=== PATIENT | female | born 1990 | race American Indian/Alaskan Native ===

== ENCOUNTER 2020-11-20 23:04 | Inpatient (IN) | payer MEDICAID ==
[2020-11-20] MEDS ORDERED: OXYTOCIN DRIP 30 UNITS/500 ML BAG IV SCH (23:45)
[2020-11-20] MEDS ORDERED: MINERAL OIL 30 ML ORAL LIQD PO PRN (23:56)
[2020-11-20] MEDS ORDERED: LIDOCAINE (2%) 20 MG/1 ML VIAL 20 ML MDV INFILTRATI ONE (23:56)
[2020-11-20] MEDS ORDERED: ePHEDrine SULFATE 50 MG/1 ML INJ IV PRN (23:56)
[2020-11-20] MEDS ORDERED: TERBUTALINE 1 MG/1 ML INJ SUB-Q PRN (23:56)
[2020-11-21] MEDS ORDERED: AMPICILLIN/NS 2 GM/100 ML 2 GM/100 ML BAG IV ONE ×2 (00:46)
[2020-11-21 00:56] LABS: Hematocrit 29.4 % (30.3-42.9); Hemoglobin 9.3 gm/dl (10.1-14.3); Mean Corpuscular HGB Conc 32 % (30-34); Platelet Count 157 K/mm3 (140-440); Red Blood Count 4.32 M/mm3 (3.65-5.03); Red Cell Distribution Width 19.7 % (13.2-15.2)
[2020-11-21 01:05] LABS: Mean Corpuscular Volume 68 fl (79-97)
[2020-11-21 01:11] LABS: Amphetamine Screen,Urine Negative; Benzodiazepines Screen,Urine Negative; Cocaine Screen,Urine Negative; Methadone Screen,Urine Negative; Opiate Screen,Urine Negative
[2020-11-21 01:25] LABS: Cannabinoid Screen,Urine Positive
[2020-11-21] MEDS ORDERED: fentaNYL 100 MCG/2 ML INJ IV PRN (02:18)
[2020-11-21] MEDS: AMPICILLIN/NS 1 GM/50 ML 1 GM/50 ML BAG IV SCH ×4 (05:26→21:35)
[2020-11-21] MEDS ORDERED: BUTORPHANOL 2 MG/1 ML INJ IV PRN (09:42)
--- NOTE | 2020-11-21 09:51 | History and Physical Report ---
History of Present Illness Date of examination: 11/21/20 Date of admission: 11/21/20 07:35 Chief complaint: "c/o uc times several hours" History of present illness: 30 y/o [facility] 40.2 wks with c/o uc times several hours. Pt denies LOF or VB and admits to active FM. Pt states she initiated her pnc at [facility] location @ about 19 wks. Pt admits to a hx of asthma since childhood, HSV2, depression w/o meds, and anemia. She denies a surgical hx. She is a smoker. Pt has a family hx of DM, ca, and HTN. Pt was found to be in active labor and was admitted to L&D for delivery. Past History Past Medical History: asthma, other (depression,anemia) Past Surgical History: no surgical history EVENT SPECIALIST History: herpes Family/Genetic History: diabetes, hypertension, cancer Social history: single, smoking, full code - Obstetrical History Expected Date of Delivery: 11/18/20 Actual Gestation: 40 Week(s) 3 Day(s) : 7 Para: 4 Hx # Term Pregnancies: 4 Number of Pregnancies: 4 Spontaneous Abortions: 1 Induced : 1 Number of Living Children: 4 Medications and Allergies Allergies Allergy/AdvReac Type Severity Reaction Status Date / Time No Known Allergies Allergy Verified 11/21/20 00:03 Active Meds: Active Medications Butorphanol Tartrate (Butorphanol 2 Mg/1 Ml Inj) 1 mg IV Q2H PRN PRN Reason: Pain, Moderate(4-6) LABOR PAIN Butorphanol Tartrate (Butorphanol 2 Mg/1 Ml Inj) 2 mg IV Q2H PRN PRN Reason: Pain , Severe (7-10) Ephedrine Sulfate (Ephedrine Sulfate 50 Mg/1 Ml Inj) 10 mg IV Q2M PRN PRN Reason: Hypotension Fentanyl (Fentanyl 100 Mcg/2 Ml Inj) 100 mcg IV Q2HR PRN PRN Reason: Labor Pain Lactated Ringer's (Lactated Ringers) 1,000 mls @ 125 mls/hr IV DIRECT DIOR Oxytocin/Sodium Chloride (Pitocin/Ns 30 Unit/500ml) 30 units in 500 mls @ 40 m ls/hr IV TITR DIOR; Protocol Ampicillin Sodium (Ampicillin/Ns 1 Gm/50 Ml) 1 gm in 50 mls @ 100 mls/hr IV Q4H DIOR; Protocol Last Admin: 11/21/20 05:26 Dose: 100 mls/hr Documented by: Oxytocin/Sodium Chloride (Pitocin/Ns 30 Unit/500ml) 30 units in 500 mls @ 2 mls/hr IV TITR DIOR; Protocol Oxytocin/Sodium Chloride (Pitocin/Ns 30 Unit/500ml) 30 units in 500 mls @ 40 mls/hr IV TITR DIOR; Protocol Mineral Oil (Mineral Oil 30 Ml Oral Liqd) 30 ml PO QHS PRN PRN Reason: Constipation Terbutaline Sulfate (Terbutaline 1 Mg/1 Ml Inj) 0.25 mg SUB-Q ONCE PRN PRN Reason: Hyperstimulation/Hypertonicity Review of Systems All systems: negative Eyes: deferred Ears, nose, mouth and throat: deferred Breasts: normal Genitourinary: normal appearance Rectal Exam: deferred - Vital Signs Vital signs: Vital Signs Temp Resp 97.8 F 16 11/20/20 23:30 11/20/20 23:30 Temp Pulse Resp BP Pulse Ox 98.0 F 87 18 106/58 99 11/21/20 07:36 11/21/20 09:44 11/21/20 02:57 11/21/20 02:48 11/21/20 09:44 - Physical Exam Breasts: Positive: normal Abdomen: Positive: normal appearance, soft, normal bowel sounds, other (gravid) Genitourinary (Female): Positive: normal external genitalia, normal perenium Vulva: both: normal Vagina: Positive: normal moisture Uterus: Positive: enlarged, normal contour, other (gravid) Adnexa: both: normal Anus/Rectum: Positive: normal perianal skin Extremities: Positive: normal - Obstetrical FHR: auscultation normal, category 1 Uterine Contraction Monitor Mode: External Cervical Dilatation: 5 (per nurse) Cervical Effacement Percentage: 60 (per nurse) station: -3 Uterine Contraction Pattern: Irregular Uterine Tone Measurement Phase: Resting Uterine Contraction Intensity: Mild Results Result Diagrams: 11/21/20 00:30 Abnormal lab results 11/21/20 Range/Units 00:30 Hgb 9.3 L (10.1-14.3) gm/dl Hct 29.4 L (30.3-42.9) % MCV 68 L (79-97) fl MCH 21 L (28-32) pg RDW 19.7 H (13.2-15.2) % All other labs normal. 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
[2020-11-21] MEDS ORDERED: OXYTOCIN DRIP 30 UNITS/500 ML BAG IV SCH ×2 (11:00)
[2020-11-21] MEDS: LACTATED RINGERS 1,000 ML IV SCH (12:10)
[2020-11-21] MEDS: BUTORPHANOL 2 MG/1 ML INJ IV PRN ×2 (14:22→17:08)
[2020-11-21] MEDS ORDERED: fentaNYL-BUPIV 2 MCG/ML-0.125% 200 MCG/100 ML BAG EPIDURAL ONE (16:27)
[2020-11-21] MEDS ORDERED: ePHEDrine SULFATE 50 MG/1 ML INJ IV PRN (18:16)
[2020-11-21] MEDS ORDERED: NALOXONE 2 MG/2 ML INJ IV PRN (18:16)
--- NOTE | 2020-11-21 18:18 | Anesthesia Consultation ---
Anesthesia Consult and Med Hx Date of service: 11/21/20 - Airway Anesthetic Teeth Evaluation: Good ROM Head & Neck: Adequate Mental/Hyoid Distance: Adequate Mallampati Class: Class II Intubation Access Assessment: Probably Good - Pulmonary Exam CTA: Yes - Cardiac Exam Cardiac Exam: RRR - Pre-Operative Health Status ASA Pre-Surgery Classification: ASA3 Proposed Anesthetic Plan: Epidural - Pulmonary Hx Smoking: Yes Hx Asthma: Yes COPD: No Hx Pneumonia: No - Cardiovascular System Hx Hypertension: No - Central Nervous System Hx Seizures: No Hx Psychiatric Problems: No - Endocrine Hx Renal Disease: No Hx End Stage Renal Disease: No Hx Hypothyroidism: No Hx Hyperthyroidism: No - Hematic Hx Anemia: Yes Hx Sickle Cell Disease: No - Other Systems Hx Alcohol Use: No Hx Substance Use: Yes (marijuana)
--- NOTE | 2020-11-21 18:39 | Progress Note ---
Labor Epidural - Labor Epidural Start Time: 18:21 Stop Time: 18:38 Performed by:: JOHANN AVALOS Procedure: Patient is requesting epidural for labor pain. H&P, and labs reviewed. Procedure explained, questions answered, consent obtained. Patient in sitting position with blood pressure cuff and pulse ox on and working. Timeout performed immediately before start of procedure. Sterile chlorahexadine 0.5% prep/drape. 3 mL 1% lidocaine skin wheal at L[3]-L[4]. 18-gauge [employer] epidural needle advanced to [id number] with saline at [7] cm. Epidural catheter advanced to [12] cm, negative aspiration for blood and csf, negative test dose 3 ml 1.5% lidocaine with epinephrine. Epidural dexmedetomidine [30] mcg administered. Sterile steri-strips and tegaderm applied, followed by tape reinforcement. Patient tolerated procedure well. Medina HOLCOMB
[2020-11-21] MEDS: fentaNYL-BUPIV 2 MCG/ML-0.125% 200 MCG/100 ML BAG EPIDURAL SCH (19:03)
[2020-11-22] MEDS: AMPICILLIN/NS 1 GM/50 ML 1 GM/50 ML BAG IV SCH ×3 (01:10→04:21)
[2020-11-22] MEDS ORDERED: ONDANSETRON 4 MG/2 ML INJ ONE (01:48)
[2020-11-22] MEDS ORDERED: ONDANSETRON 4 MG/2 ML INJ IV ONE (01:50)
[2020-11-22] MEDS: LACTATED RINGERS 1,000 ML IV SCH (01:50)
[2020-11-22] MEDS: fentaNYL-BUPIV 2 MCG/ML-0.125% 200 MCG/100 ML BAG EPIDURAL SCH (04:22)
[2020-11-22] MEDS ORDERED: miSOPROStol 200 MCG TAB ONE (08:13)
[2020-11-22] MEDS ORDERED: miSOPROStol 200 MCG TAB PR ONE (08:15)
[2020-11-22] MEDS ORDERED: diphenhydrAMINE 25 MG CAP PO PRN (09:00)
[2020-11-22] MEDS ORDERED: PROMETHAZINE 25 MG RECT SUPP PR PRN (09:00)
[2020-11-22] MEDS ORDERED: PROMETHAZINE 25 MG TAB PO PRN (09:00)
[2020-11-22] MEDS ORDERED: LANOLIN/ZINC/DIMETHICONE (LANSINOH) 7 GM TP PRN (09:00)
[2020-11-22] MEDS ORDERED: ONDANSETRON 4 MG/2 ML INJ IV PRN (09:00)
[2020-11-22] MEDS ORDERED: WITCH HAZEL/ GLYCERIN PAD TP PRN (09:00)
--- NOTE | 2020-11-22 09:10 | Procedure Note ---
OB Delivery Note - Delivery Date of Delivery: 11/22/20 Surgeon: STEFAN BLOOM - Vaginal Delivery presentation: vertex Delivery position: OA Delivery induction: none Delivery augmentation: pitocin Delivery monitor: external FHT, external uterine Route of delivery: Delivery placenta: spontaneous Delivery cord: 3 umbilical vessels Episiotomy: none Delivery laceration: none Anesthesia: intravenous, epidural Delivery comments: Called to for a del. SVE 10/100/+1 and pt was pushing. of a viable live female infant in OA position. Spont delivery of head and shoulders. Infant was placed on mom's chest/abd for skin to skin bonding while NICU nurse dried and stimulated baby. Delayed cord clamping x approx 90 sec then cord was clamped x 2 and FOB was allowed to cut the cord. Baby was taken to infant warmer for an asses by NICU nurse. 9/9. Spontaneous delivery of an intact placenta with 3CV. Fundus boggy intermittently @U with occ trickle of blood noted. Urinary cath done. Homeostasis was maintained with fundal massage, IV Pitocin and Cytotec 800 mcg DC. An exploration of tears revealed none. QBL 654 per nurse. FW 3065 Gms. Mom and baby was left in stable condition with nurses. - Infant A at 1 minute: 9 at 5 minutes: 9 Infant Gender: Female (FW 3065 Gms)
[2020-11-22] MEDS: IBUPROFEN 600 MG TAB PO SCH ×3 (10:18→23:36)
[2020-11-22 15:33] LABS: Basophils % (Auto) 0.1 % (0.0-1.8); Hematocrit 35.7 % (30.3-42.9); Hemoglobin 11.1 gm/dl (10.1-14.3); Lymphocytes # (Auto) 0.8 K/mm3 (1.2-5.4); Lymphocytes % (Auto) 4.7 % (13.4-35.0); Mean Corpuscular HGB Conc 31 % (30-34); Mean Corpuscular Volume 68 fl (79-97); Monocytes # (Auto) 0.9 K/mm3 (0.0-0.8); Monocytes % (Auto) 5.5 % (0.0-7.3); Platelet Count 175 K/mm3 (140-440); Red Blood Count 5.24 M/mm3 (3.65-5.03); Red Cell Distribution Width 19.6 % (13.2-15.2)
[2020-11-22] MEDS: FAMOTIDINE 20 MG TAB PO SCH (16:37)
[2020-11-22 21:20] LABS: Hematocrit 33.5 % (30.3-42.9); Hemoglobin 10.7 gm/dl (10.1-14.3)
[2020-11-22] MEDS ORDERED: MAGNESIUM HYDROXIDE (MOM) ORAL LIQD UDC PO PRN (22:00)
[2020-11-22] MEDS: FERROUS SULFATE 325 MG TAB PO SCH (23:37)
[2020-11-23] MEDS ORDERED: TETANUS,DIPH,PERTUSS(ACELL) VACCINE 0.5 ML SYRINGE IM ONE (06:00)
[2020-11-23] MEDS: FERROUS SULFATE 325 MG TAB PO SCH ×2 (09:30→22:31)
[2020-11-23] MEDS: FAMOTIDINE 20 MG TAB PO SCH (09:30)
[2020-11-23] MEDS: IBUPROFEN 600 MG TAB PO SCH ×3 (09:30→22:32)
--- NOTE | 2020-11-23 11:54 | Progress Note ---
Assessment and Plan - Patient Problems (1) Vaginal delivery Current Visit: Yes Status: Acute Plan to address problem: Patient doing well. Meeting goals. --Dispo pending evaluation and management of depression/poor social support (2) Depression Current Visit: Yes Status: Acute Plan to address problem: --Psych consulted given [place] scale result --SW consulted for resources --Dispo pending completion of assessment Subjective - Subjective Date of service: 11/23/20 Principal diagnosis: PPD1, hx depression Interval history: Patient somewhat upset up unsupportive FOB given 4 other children needing summer school with new baby. Only one car. Denies SI/HI, but feels overwhelmed. [place] 14. Breast/bottle feeding. Would like resources for support Patient reports: appetite normal, voiding normally, pain well controlled [place]: doing well Objective - Vital Signs Latest vital signs: Vital Signs Temp Pulse Resp BP Pulse Ox 11/23/20 07:14 98.1 F 69 20 111/70 100 11/22/20 23:36 12 11/22/20 21:15 97.6 F 75 18 114/69 100 11/22/20 16:10 98.2 F 86 24 112/75 100 Intake and Output 11/22/20 11/23/20 11/23/20 23:59 07:59 15:59 Intake Total 480 240 Balance 480 240 Intake: Oral 480 240 Other: Total, Intake Amount 480 240 # Voids Void 1 - Exam Abdomen: Present: normal appearance, normal bowel sounds Uterus: Present: fundal height below umbilicus - Labs Labs: Abnormal lab results 11/22/20 Range/Units 15:12 WBC 16.7 H (4.5-11.0) K/mm3 RBC 5.24 H (3.65-5.03) M/mm3 MCV 68 L (79-97) fl MCH 21 L (28-32) pg RDW 19.6 H (13.2-15.2) % Lymph % (Auto) 4.7 L (13.4-35.0) % Lymph # (Auto) 0.8 L (1.2-5.4) K/mm3 [place] # (Auto) 0.9 H (0.0-0.8) K/mm3 Seg Neutrophils % 89.7 H (40.0-70.0) % Seg Neutrophils # 15.0 H (1.8-7.7) K/mm3
--- NOTE | 2020-11-23 18:51 | Post Anesthesia Evaluation ---
- Post Anesthesia Evaluation Patient Participated: Yes Airway Patent: Yes Stable Respiratory Function: Yes Nausea/Vomiting: No Temp > 96.8F: Yes Pain Manageable: Yes Adequeate Hydration: Yes Anesthesia Complications: No Block Receding Appropriately: Yes
[2020-11-24] MEDS: IBUPROFEN 600 MG TAB PO SCH ×2 (04:40→12:35)
--- NOTE | 2020-11-24 07:04 | Consultation ---
History of Present Illness - Reason for Consult Consult date: 11/24/20 Reason for consult: MHE Requesting physician: ANDRA PARRISH JR - Chief Complaint Chief complaint: "c/o uc times several hours" - History of Present Psychiatric Illness Per ED Provider: PSYCH HPI Patient is a 30-year-old single, currently unemployed -Serbian female with past psychiatric history of depression and has past medical history of asthma and anemia who was admitted to the hospital for child delivery with subsequent psychiatric consult for elevated depression scoring scale. Patient reported that she has prior history of depression but has never been put on medication for it. Patient reports feeling better with an improved mood today, endorses feeling depressed yesterday on and off when she started thinking about what life would be after leaving the hospital with a baby. Patient reported that she also has 4 other kids at home, and trying to adjust to the new lifestyle of a baby and caring for 5 kids now made her feel worried reports she has prayed to God about it and is keeping an optimistic mindset. Patient endorses that she gets support from the kids baby daddy's and also grandma. Denies any suicidal thoughts or homicidal ideations at this moment Patient denies panic attacks, recurrent nightmares or flashbacks. Patient denies symptoms suggestive of OCD or PTSD. Patient denies hallucinations, paranoia, thought interference and no features suggestive of hypomania or jade. Patiently completely denies suicidal or homicidal thoughts. PAST PSYCHIATRIC HISTORY Diagnoses: Depression Suicide attempts or Self-harm behavior: None reported Prior psychiatric hospitalizations: None reported Substance Abuse history: Marijuana Previous psychiatric medications tried: None reported Outpatient treatment: PAST MEDICAL HISTORY: Asthma and anemia Family Psychiatric History: None reported or documented SOCIAL HISTORY Marital Status: Single Living Arrangements: With family Employment Status: Employed Access to guns/weapons: None reported Education: Some college History of Abuse: None report Legal History: None reported REVIEW OF SYSTEMS Constitutional: Negative for weight loss ENT: Negative for stridor Respiratory: Negative for cough or hemoptysis All other systems reviewed and are negative MENTAL STATUS EXAMINATION General Appearance and Behavior: Age appropriate, good hygiene, wearing appropriate clothes, good eye contact, cooperative polite with questioning. Cooperation: Participating/engaged Psychomotor Behavior: unremarkable and within normal limits Mood: Good Affect and affective range: congruent with mood Thought Process: Fluent/Logical, Thought Content: Within reality, Speech: Normal volume, Regular rate and rhythm, Intellectual Functioning: Average Suicidal Ideation: Denies SI Homicidal Ideation: Denies HI Impulse Control: Unimpaired Insight and Judgment: Normal insight and judgment, Memory: Normal, Attention: Normal, Orientation: Alert, oriented, Assessment and Plan - Psychiatric problem (1) Depression Current Visit: Yes Status: Acute Treatment Plan Outpatient counseling services MEDICATIONS: Risks, benefits and alternatives of medications discussed with the patient, questions answered and consent obtained from patient. PSYCHOTHERAPY: Supportive psychotherapy provided MEDICAL: Per primary team DELIRIUM PRECAUTIONS: Please re-orient patient frequently, keep lights on during the day, and minimize benzodiazepines and opiates as these medications could worsen patient's confusion. FLOOR COVERING INSTALLER: DISPOSITION: Do Not Recommend acute inpatient psychiatric hospitalization at this time. Case discussed with Dr. Dunn who agrees with current disposition LEGAL STATUS: voluntary FOLLOW-UP: Will sign off Thank you for the consult. Please contact with any questions and/or concerns. Medications and Allergies Allergies Allergy/AdvReac Type Severity Reaction Status Date / Time No Known Allergies Allergy Verified 11/21/20 00:03 Home Medications Medication Instructions Recorded Confirmed Last Taken Type No Known Home Medications [No 11/21/20 11/21/20 Unknown History Reported Home Medications] Active Meds: Active Medications Bisacodyl (Bisacodyl 10 Mg Rect Supp) 10 mg TX BID PRN PRN Reason: Constipation Butorphanol Tartrate (Butorphanol 2 Mg/1 Ml Inj) 1 mg IV Q2H PRN PRN Reason: Pain, Moderate(4-6) LABOR PAIN Butorphanol Tartrate (Butorphanol 2 Mg/1 Ml Inj) 2 mg IV Q2H PRN PRN Reason: Pain , Severe (7-10) Last Admin: 11/21/20 17:08 Dose: 2 mg Documented by: Diphenhydramine HCl (Diphenhydramine 25 Mg Cap) 25 mg PO Q6H PRN PRN Reason: Itching Ephedrine Sulfate (Ephedrine Sulfate 50 Mg/1 Ml Inj) 10 mg IV Q2M PRN PRN Reason: Hypotension Famotidine (Famotidine 20 Mg Tab) 20 mg PO QDAY DIOR Last Admin: 11/23/20 09:30 Dose: 20 mg Documented by: Fentanyl (Fentanyl 100 Mcg/2 Ml Inj) 100 mcg IV Q2HR PRN PRN Reason: Labor Pain Ferrous Sulfate (Ferrous Sulfate 325 Mg Tab) 325 mg PO BID DIOR Last Admin: 11/23/20 22:31 Dose: 325 mg Documented by: Lactated Ringer's (Lactated Ringers) 1,000 mls @ 125 mls/hr IV DIRECT DIOR Last Admin: 11/22/20 01:50 Dose: 125 mls/hr Documented by: Oxytocin/Sodium Chloride (Pitocin/Ns 30 Unit/500ml) 30 units in 500 mls @ 40 mls/hr IV TITR DIOR; Protocol Last Admin: 11/22/20 07:28 Dose: 165 mls/hr, 165 mls/hr Documented by: Ampicillin Sodium (Ampicillin/Ns 1 Gm/50 Ml) 1 gm in 50 mls @ 100 mls/hr IV Q4H DIOR; Protocol Last Admin: 11/22/20 04:21 Dose: 100 mls/hr Documented by: Oxytocin/Sodium Chloride (Pitocin/Ns 30 Unit/500ml) 30 units in 500 mls @ 2 mls/hr IV TITR DIOR; Protocol Last Titration: 11/21/20 19:12 Dose: 2 mls/hr, 2 mls/hr Documented by: Oxytocin/Sodium Chloride (Pitocin/Ns 30 Unit/500ml) 30 units in 500 mls @ 40 mls/hr IV TITR DIOR; Protocol Fentanyl/Bupivacaine/Sodium Chlor (Fentanyl-Bupiv 2 Mcg/Ml-0.125%) 200 mcg in 100 mls @ 12 mls/hr EPIDURAL TITR DIOR; Protocol Last Admin: 11/22/20 04:22 Dose: 12 mls/hr Documented by: Ibuprofen (Ibuprofen 600 Mg Tab) 600 mg PO Q6H DIOR Last Admin: 11/24/20 04:40 Dose: Not Given Documented by: Magnesium Hydroxide (Magnesium Hydroxide (Mom) Oral Liqd Udc) 30 ml PO HS PRN PRN Reason: Constipation Mineral Oil (Mineral Oil 30 Ml Oral Liqd) 30 ml PO QHS PRN PRN Reason: Constipation Multi-Ingredient Ointment (Lanolin/Zinc/Dimethicone (Lansinoh) 7 Gm) 1 applic TP PRN PRN PRN Reason: Sore Nipples Naloxone HCl (Naloxone 2 Mg/2 Ml Inj) 0.2 mg IV Q5M PRN PRN Reason: Respiratory sedation Ondansetron HCl (Ondansetron 4 Mg/2 Ml Inj) 4 mg IV Q8H PRN PRN Reason: Nausea And Vomiting Promethazine HCl (Promethazine 25 Mg Rect Supp) 25 mg [place] Q6H PRN PRN Reason: Nausea And Vomiting Promethazine HCl (Promethazine 25 Mg Tab) 25 mg PO Q6H PRN PRN Reason: Nausea And Vomiting Sodium Chloride (Sodium Chloride 0.9% 10 Ml Flush Syringe) 10 ml IV PRN NR Stop: 12/03/20 08:59 Terbutaline Sulfate (Terbutaline 1 Mg/1 Ml Inj) 0.25 mg SUB-Q ONCE PRN PRN Reason: Hyperstimulation/Hypertonicity Witch Janel/Glycerin (Witch Janel/ Glycerin Pad) 1 each TP PRN PRN PRN Reason: Hemorrhoid/cleansing/soothing Mental Status Exam - Vital signs Last Vital Signs Temp 98.5 F 11/24/20 00:29 Pulse 65 11/24/20 00:29 Resp 20 11/24/20 00:29 BP 132/75 11/24/20 00:29 Pulse Ox 99 11/24/20 00:29 Results Result Diagrams: 11/22/20 20:49 All other labs normal. Assessment and Plan - Psychiatric problem (1) Depression Current Visit: Yes Status: Acute
[2020-11-24] MEDS: FAMOTIDINE 20 MG TAB PO SCH (10:32)
[2020-11-24] MEDS: FERROUS SULFATE 325 MG TAB PO SCH (10:32)
--- NOTE | 2020-11-24 15:23 | Progress Note ---
Assessment and Plan A: day 2 S/P . Anemia. P: Discharge patient home today. Discussed with patient discharge instructions and warning signs. Advised patient to continue taking her vitamin and iron supplements at home. Advised patient to avoid IC, lifting. Advised patient to follow up at [facility] office tomorrow 11/25/20 for repeat CBC. Patient refused repeat CBC here at hospital and insisted she be discharged home. Patient voiced understanding of all instructions. Subjective - Subjective Date of service: 11/24/20 Principal diagnosis: PPD2, hx depression Interval history: Seen and cleared by psych and social services coordinator. Taking iron supplements for anemia. Patient refuses repeat CBC (leukocytosis on day of delivery). Patient denies urinary frequency, dysuria, back pain, flank pain, cough, fever or chills, malaise, leg pain, foul smelling discharge or any other problems. Patient agrees to return to [facility] office tomorrow 11/25/20 for repeat CBC. Patient insists she has to go home today since she has 4 other children at home to get home to and grandmother is watching the kids right now. Patient reports: appetite normal, voiding normally, pain well controlled, flatus, ambulating normally, no dizzy ambulation, no nauseated : doing well Objective - Vital Signs Latest vital signs: Vital Signs Temp Pulse Resp BP Pulse Ox 11/24/20 08:37 98.7 F 81 18 123/76 100 11/24/20 00:29 98.5 F 65 20 132/75 99 11/23/20 16:18 98.0 F 68 18 128/78 100 Intake and Output 11/23/20 11/24/20 11/24/20 23:59 07:59 15:59 Intake Total 840 240 240 Balance 840 240 240 Intake: Oral 360 240 240 Intake, Free Water 480 Other: Total, Intake Amount 360 240 240 Voiding Method Toilet # Voids Void 1 1 1 - Exam Cardiovascular: Present: Regular rate Lungs: Present: Clear to auscultation Abdomen: Present: normal appearance, soft, normal bowel sounds. Absent: distention, tenderness, guarding, rigidity Uterus: Present: normal, firm, fundal height below umbilicus. Absent: bogginess, tenderness Extremities: Present: normal. Absent: tenderness, edema
--- NOTE | 2020-11-24 15:27 | Discharge Summary ---
Providers - Providers Date of Admission: 11/21/20 07:35 Date of discharge: 11/24/20 Attending physician: BEAU LOPEZ MD 11/21/20 12:32 Consult to Mental Health [CONS] Routine Reason For Exam: hx of depression/ pp depression (no meds) 11/22/20 10:58 Consult to Case Management [CONS] Routine Services Needed at Discharge: Sliver Chopper Notified:: Yes Additional Physician Instructions: Positive drug screen (marijuana) 11/23/20 09:59 psychiatry consult [Consult to Mental Health] [CONS] Routine Reason For Exam: hx of depression/pp depression (no meds) Primary care physician: BEAU LOPEZ MD Hospitalization Reason for admission: active labor Delivery: Episiotomy: none Laceration: none Other procedures: none complications: none Discharge diagnosis: IUP at term delivered [place] baby: female Pertinent studies: Labs Hospital course: Stable hospital course Condition at discharge: Good Disposition: DC-01 TO HOME OR SELFCARE - Discharge Diagnoses (1) Term delivered Status: Acute (2) Anemia Status: Acute Plan - Provider Discharge Summary Activity: routine, no sex for 6 weeks, no heavy lifting 4 weeks, no strenuous exercise Diet: routine Instructions: routine Additional instructions: Continue taking your vitamins and iron supplements at home. Follow up at [facility] office tomorrow 11/25/20. Call your doctor immediately for: * Fever > 100.5 * Heavy vaginal bleeding ( >1 pad per hour) * Severe persistent headache * Shortness of breath * Reddened, hot, painful area to leg or breast - Follow up plan Follow up: BEAU LOPEZ MD [Primary Care Provider] - 11/25/20 Forms: [facility] Discharge Summary
[2020-11-24 16:32] VITALS: BP 128/74
== END 2020-11-24 16:20 | disposition home or self-care (01) | DRG 774 ==
LOC: TRG 23:04 → APU 23:51 → LD 11-21 02:10 → TRG 11-21 07:35 → LD 11-21 07:35 → OB 11-22 10:16
PROVIDERS: ATTEND Obstetrics & Gynecology
PROC: 10E0XZZ Delivery of Products of Conception, External Approach (ICD-10-PCS; principal; 2020-11-22)
PROC: 3E0R3BZ Introduction of Anesthetic Agent into Spinal Canal, Percutaneous Approach (ICD-10-PCS; 2020-11-22)
PROC: 00HU33Z Insertion of Infusion Device into Spinal Canal, Percutaneous Approach (ICD-10-PCS; 2020-11-22)
PROC: 3E0P7VZ Introduction of Hormone into Female Reproductive, Via Natural or Artificial Opening (ICD-10-PCS; 2020-11-22)
PROC: 3E0234Z Introduction of Serum, Toxoid and Vaccine into Muscle, Percutaneous Approach (ICD-10-PCS; 2020-11-23)
DX: O99.344 Other mental disorders complicating childbirth (principal); O98.52 Other viral diseases complicating childbirth; Z3A.40 40 weeks gestation of pregnancy; Z37.0 Single live birth; O99.52 Diseases of the respiratory system complicating childbirth; J45.909 Unspecified asthma, uncomplicated; O99.334 Smoking (tobacco) complicating childbirth; F17.200 Nicotine dependence, unspecified, uncomplicated; B00.9 Herpesviral infection, unspecified; O99.324 Drug use complicating childbirth; F12.90 Cannabis use, unspecified, uncomplicated; O99.02 Anemia complicating childbirth; D64.9 Anemia, unspecified; Z20.822 Contact with and (suspected) exposure to COVID-19; D56.3 Thalassemia minor; Z23 Encounter for immunization; F32.9 Major depressive disorder, single episode, unspecified; Z83.3 Family history of diabetes mellitus; Z82.49 Family history of ischemic heart disease and other diseases of the circulatory system
CPT/HCPCS: 36415; 80307; 85014; 85018; 85025; 85027; 86850; 86900; 86901; G0378; A6250; J0290; J0595; J2405; J2590; J7120; U0003